=== PATIENT | female | born 1990 | race Caucasian/White ===

== ENCOUNTER 2017-01-26 03:57 | Inpatient (IN) | payer OTHER ==
[2017-01-26] MEDS ORDERED: RINGER'S SOLUTION,LACTATED 1,000 ML IV PRN (05:00)
[2017-01-26] MEDS ORDERED: OXYTOCIN 20 UNITS in RINGER'S SOLUTION,LACTATED 1,000 ML IV ONE (05:00)
[2017-01-26 05:10] LABS: Cocaine Ur Negative (NEGATIVE); Urine Barbiturate Negative (NEGATIVE); Urine Benzodiazepines Negative (NEGATIVE); Urine Opiates Negative (NEGATIVE); Urine PCP Negative (NEGATIVE); Urine THC Negative (NEGATIVE)
[2017-01-26] MEDS ORDERED: CEFAZOLIN SODIUM IV ONE ×2 (05:15)
[2017-01-26] MEDS ORDERED: WATER IV ONE ×2 (05:15)
[2017-01-26] MEDS ORDERED: DEXTROSE 5% IV ONE ×2 (05:15)
[2017-01-26] MEDS ORDERED: ceFAZolin SODIUM 1 GM VIAL IV ONE (06:00)
[2017-01-26] MEDS ORDERED: DEXTROSE 5% IV PRN ×2 (06:14)
[2017-01-26] MEDS ORDERED: CEFAZOLIN SODIUM IV PRN ×2 (06:14)
[2017-01-26] MEDS ORDERED: WATER IV PRN ×2 (06:14)
[2017-01-26] MEDS: RINGER'S SOLUTION,LACTATED 1,000 ML IV PRN ×2 (06:23→09:49)
[2017-01-26] MEDS ORDERED: RINGER'S SOLUTION,LACTATED 1,000 ML IV ONE ×2 (06:55→09:41)
[2017-01-26] MEDS ORDERED: ONDANSETRON HCL/PF 2 MG/ML VIAL IV PRN (08:50)
[2017-01-26] MEDS ORDERED: SENNOSIDES 8.6 MG TABLET PO PRN (08:50)
[2017-01-26] MEDS ORDERED: SIMETHICONE 80 MG TAB.CHEW PO PRN (08:50)
[2017-01-26] MEDS ORDERED: GLYCERIN/WITCH HAZEL LEAF 40 APPL BOX TP PRN (08:50)
[2017-01-26] MEDS ORDERED: BISACODYL 10 MG SUPP.RECT RC PRN (08:50)
[2017-01-26] MEDS ORDERED: HYDROmorphone HCL 2 MG/ML VIAL IV PRN (09:04)
--- NOTE | 2017-01-26 09:04 | OR ---
Operative Report - Dictated Report Narrative: Indication: 26-year-old 5 para 3 with history of prior 3, asthma, chronic hypertension, gestational diabetes, morbid obesity, and oligohydramnios with downward growth of fetus presents for repeat section. status: Planned Pre Operative Diagnosis: 38 week intrauterine , prior section 3, chronic hypertension, gestational diabetes-diet controlled, morbid obesity, oligohydramnios with downward growth of fetus Post Operative Diagnosis: Same. Procedure: Repeat low transverse section. Abdominal scar revision - 17 cm, lysis of adhesions, left fimbriectomy Surgeon: Consuelo Johnson DO Drapery Inspector: OR Staff Anesthesia: Spinal, Estimated Blood Loss: 300 mL Urine Output: 300 mL clear urine Fluids Replacement: 1300 mL Drains: Garza to gravity Surgical Complications: Small laceration of left mesosalpinx requiring fimbriectomy Specimens: Placenta to pathology Findings: Female in cephalic presentation born at 0729 on [birth year] with Apgars 8 and 9, weighing 3110 g. Omental adhesions to the anterior fundus of the uterus and left fallopian tube. Technique: The patient was taken to the operating room and placed in dorsal supine position with a left lateral tilt. After adequate spinal anesthesia, garza catheter inserted, SCDs placed, and 3 g of Ancef given preoperatively, the previous scar was excised in an elliptical fashion and the abdominal cavity was entered using sharp and blunt dissection. Two rolled laps were placed in the pericolic gutters on either side of the uterus. Omental adhesions were taken down sharply with scalpel and Bovie to allow visualization of the anterior uterine segment. A transverse incision was made in the lower uterine segment and extended laterally and upwardly with digital traction. Clear fluid was noted upon amniotomy. The infant was delivered easily. The cord was clamped and cut and infant was handed off to awaiting new media strategist. The placenta was allowed to deliver spontaneously. The uterus was cleared of clot and debris. Uterine incision was closed with 0 Vicryl using a running stitch. A second imbricating layer was placed. 2 additional [id number] sutures were placed in the right corner of the incision to provide hemostasis. The rolled laps were removed from the abdominal cavitiy. Upon examining the tubes and ovaries, the left mesosalpinx was bleeding where omental adhesions had torn free from it. Cauterization of the vessel failed to provide hemostasis therefore fimbriectomy was performed providing excellent hemostasis. The peritoneum was closed with a running 3-0 Monocryl. The same suture was used to approximate the rectus and pyramidalis muscles. The fascia was closed with a running 0 Vicryl. The subcutaneous layer was closed with a running 3-0 Monocryl. The same suture was used to approximate the subdermal layer. The skin was closed with a running 4-0 Monocryl and Dermabond. Sponge, lap, needle , and instrument count were correct x 2. Disposition: To post anesthesia care unit in good condition
[2017-01-26] MEDS ORDERED: ' PO SCH (09:30)
[2017-01-26] MEDS: DOCUSATE SODIUM 100 MG CAPSULE PO SCH ×3 (09:37→20:35)
[2017-01-26] MEDS: FERROUS SULFATE 325 MG TABLET PO SCH ×3 (09:37→17:01)
[2017-01-26] MEDS: PRENATAL VITS96/IRON FUM/FOLIC 1 TAB TABLET PO SCH (09:38)
[2017-01-26] MEDS: METHYLDOPA 250 MG TABLET PO SCH ×2 (13:53→20:34)
[2017-01-26] MEDS: FAMOTIDINE 20 MG TABLET PO SCH (13:53)
[2017-01-26] MEDS: oxyCODONE HCL/ACETAMINOPHEN 1 TAB TABLET PO PRN ×3 (14:08→20:35)
[2017-01-26] MEDS: ENOXAPARIN SODIUM 40 MG/0.4 ML SYRG SC SCH (15:38)
[2017-01-26] MEDS: IBUPROFEN 800 MG TABLET PO PRN (17:09)
[2017-01-27] MEDS: IBUPROFEN 800 MG TABLET PO PRN ×3 (01:19→16:52)
[2017-01-27] MEDS: oxyCODONE HCL/ACETAMINOPHEN 1 TAB TABLET PO PRN ×5 (01:19→21:43)
[2017-01-27] MEDS: FERROUS SULFATE 325 MG TABLET PO SCH ×2 (10:25→16:45)
[2017-01-27] MEDS: FAMOTIDINE 20 MG TABLET PO SCH (10:25)
[2017-01-27] MEDS: METHYLDOPA 250 MG TABLET PO SCH ×2 (10:25→21:36)
[2017-01-27] MEDS: DOCUSATE SODIUM 100 MG CAPSULE PO SCH ×2 (10:25→21:36)
[2017-01-27] MEDS: PRENATAL VITS96/IRON FUM/FOLIC 1 TAB TABLET PO SCH (10:26)
--- NOTE | 2017-01-27 13:44 | PN ---
Subjective - Date and Time Seen Date: 01/27/17 Time: 13:43 Objective - Vitals Vitals: Last Vital Signs Temp 36.7 C 01/26/17 19:30 Pulse 68 01/27/17 10:39 Resp 16 01/27/17 10:39 BP 122/57 01/27/17 10:39 Pulse Ox 99 01/27/17 10:39 Patient denies complaints. Tolerating regular diet. Ambulating without difficulty. Pain well controlled. Lochia wnl. Abdomen - soft, appropriately tender Incision - clean, dry, intact Uterus - firm, at umbilicus -1 No calf tenderness Impression: Post op day #1 s/p repeat section. Chronic hypertension- stable. Gestational diabetes-stable. Morbid obesity. Plan: Continue routine post-operative/ care. Check fasting and one- hour postprandial blood sugars in a.m. [place] Physician Documentation - Urinary Catheter Management Uretheral (Glass) Date of Insertion: 01/26/17 Time of Insertion: 07:10 Date of Removal: 01/26/17 Time of Removal: 19:30
[2017-01-27] MEDS: ENOXAPARIN SODIUM 40 MG/0.4 ML SYRG SC SCH (16:45)
[2017-01-28] MEDS: IBUPROFEN 800 MG TABLET PO PRN ×2 (01:10→08:47)
[2017-01-28] MEDS: DOCUSATE SODIUM 100 MG CAPSULE PO SCH (08:47)
[2017-01-28] MEDS: oxyCODONE HCL/ACETAMINOPHEN 1 TAB TABLET PO PRN ×2 (08:48→14:14)
[2017-01-28] MEDS: METHYLDOPA 250 MG TABLET PO SCH (08:50)
[2017-01-28] MEDS: PRENATAL VITS96/IRON FUM/FOLIC 1 TAB TABLET PO SCH (08:53)
[2017-01-28] MEDS: FAMOTIDINE 20 MG TABLET PO SCH (08:53)
[2017-01-28] MEDS: FERROUS SULFATE 325 MG TABLET PO SCH (10:26)
[2017-01-28 14:24] VITALS: BP 130/80
[2017-01-28] MEDS: ENOXAPARIN SODIUM 40 MG/0.4 ML SYRG SC SCH (17:31)
== END 2017-01-28 18:09 | disposition left against medical advice (07) | DRG 765 ==
LOC: MS 03:57
PROVIDERS: ADMIT Obstetrics & Gynecology; ATTEND Obstetrics & Gynecology
PROC: 0W3F0ZZ Control Bleeding in Abdominal Wall, Open Approach (ICD-10-PCS; 2017-01-26)
PROC: 4A1H7CZ Monitoring of Products of Conception, Cardiac Rate, Via Natural or Artificial Opening (ICD-10-PCS; 2017-01-26)
PROC: 10D00Z1 Extraction of Products of Conception, Low, Open Approach (ICD-10-PCS; principal; 2017-01-26 07:00)
DX: O41.03X0 Oligohydramnios, third trimester, not applicable or unspecified (principal); O10.92 Unspecified pre-existing hypertension complicating childbirth; Z68.43 Body mass index [BMI] 50.0-59.9, adult; O71.6 Obstetric damage to pelvic joints and ligaments; O71.89 Other specified obstetric trauma; O24.420 Gestational diabetes mellitus in childbirth, diet controlled; O99.214 Obesity complicating childbirth; E66.01 Morbid (severe) obesity due to excess calories; O34.211 Maternal care for low transverse scar from previous cesarean delivery; Z3A.38 38 weeks gestation of pregnancy; Z37.0 Single live birth